=== PATIENT | female | born 1980 | race Hispanic/Latino ===

== ENCOUNTER 2021-11-26 16:01 | Emergency (ER) | payer SELFPAY ==
[~2021-11-26] VITALS: Ht 152.4 cm; Wt 81.6 kg
[2021-11-26] MEDS ORDERED: SODIUM CHLORIDE 0.9% 1000ML 1,000 ML IV SCH (19:30)
[2021-11-26] MEDS ORDERED: ASPIRIN 325 MG TAB PO ONE ×2 (19:30→20:16)
[2021-11-26] MEDS ORDERED: ALBUTEROL/IPRATROPIUM 3 ML NEB NEB ONE (19:45)
[2021-11-26 20:47] VITALS: BP_SYST 5
== END 2021-11-26 20:47 | disposition other institution (70) ==
LOC: FSED 17:40
DX: R07.89 Other chest pain (principal); D64.9 Anemia, unspecified
CPT/HCPCS: 71045; 80053; 82270; 82553; 83880; 84484; 85025; 93005; 99284; J7030

== ENCOUNTER 2022-08-01 08:38 | Emergency (ER) | payer SELFPAY ==
[~2022-08-01] VITALS: Ht 154.9 cm; Wt 94.9 kg
[2022-08-01] MEDS ORDERED: MECLIZINE HCL12.5 MG PO (09:16)
[2022-08-01] MEDS ORDERED: ONDANSETRON ODT4 MG PO (09:16)
[2022-08-01] MEDS ORDERED: ONDANSETRON HCL 4 MG ORAL DISINTEGRATING TAB PO ONE (09:45)
[2022-08-01] MEDS ORDERED: ONDANSETRON HCL 4 MG ORAL DISINTEGRATING TAB ONE (09:52)
[2022-08-01] MEDS ORDERED: METFORMIN HCL500 M2 PO (11:37)
[2022-08-01] MEDS ORDERED: GLIPIZIDE5 MG PO (11:37)
[2022-08-01] MEDS ORDERED: NEURONTIN100 MG PO (11:37)
[2022-08-01] MEDS ORDERED: LISINOPRIL5 MG PO (11:37)
== END 2022-08-01 09:42 | disposition home or self-care (01) ==
LOC: FSED 09:03
DX: R42 Dizziness and giddiness (principal); H83.01 Labyrinthitis, right ear; E11.65 Type 2 diabetes mellitus with hyperglycemia; E78.5 Hyperlipidemia, unspecified; R94.31 Abnormal electrocardiogram [ECG] [EKG]
CPT/HCPCS: 36415; 82948; 93005; 99283; Q0162